=== PATIENT | female | born 1975 | race Caucasian/White ===

== ENCOUNTER 2024-11-28 05:52 | Emergency (ER) | payer MEDICAID, SELFPAY ==
[2024-11-28 05:55] VITALS: BP 186/99; PULSE 86; RESP 18; TEMP 36.7; O2SAT 96; BMI 29.2
--- NOTE | 2024-11-28 06:39 | PD.EDEAR ---
ED Ear RME/HPI General Chief complaint: Ear Stated complaint: LT EARACHE Time Seen by Provider: 11/28/24 06:13 Source: patient and EMS Arrival date/time: 11/28/24 05:52 This is a 49-year-old female history of alcoholism presents today with complaints of left ear pain and drainage. Patient also reports she has some mild nausea and bodyaches. Patient denies fever, chills no dyspnea Mode of arrival: EMS Related Data Home Medications ?Medication ?Instructions ?Recorded ?Confirmed buspirone 15 mg tablet 15 mg PO BID 09/20/20 09/20/20 furosemide 20 mg tablet 20 mg PO QDAY 09/20/20 09/20/20 gabapentin 300 mg capsule 300 mg PO TID 09/20/20 09/20/20 prazosin 2 mg capsule 4 mg PO QDAY 09/20/20 09/20/20 risperidone 1 mg tablet 1 mg PO BID 09/20/20 09/20/20 trazodone 50 mg tablet 50 mg PO HS 09/20/20 09/20/20 Previous Rx's ?Medication ?Instructions ?Recorded amoxicillin 875 mg-potassium 1 tab PO BID #14 tabs 11/28/24 clavulanate 125 mg tablet Allergies Allergy/AdvReac Type Severity Reaction Status Date / Time bee venom protein (honey bee) Allergy Severe swelling, Verified 11/28/24 05:59 difficulty breathing Review of Systems Review of Systems Systems Reviewed: All systems reviewed, normal except as documented Narrative Review of Systems: Gen: No fever, no chills, no weight loss EYES: No discharge, no visual changes, no pain HEENT: Left ear pain, no congestion, no sore throat PULM: No shortness of breath, no cough, no congestion CV: No chest pain, no dyspnea on exertion, no palpitations GI: No nausea, no vomiting, no diarrhea, no pain, no constipation : No frequency, no urgency, no dysuria Musc/skel: No joint pain, no back pain Skin: No rash Psyc: No hallucinations, no depression Heme/Lymph: No easy bleeding or bruising tendencies Neuro: No weakness, no headache ED Exam Narrative Physical exam: Chronically ill-appearing female General: Sittiing in Exam table in no acute distress, answering questions appropriately HENT: normocephalic, atraumatic, EOMI, PERRLA, moist mucous membranes. _Left TM whitish drainage Chest: chest wall is nontender Cardiac: regular rate and rhythm, normal S1 and S2, no murmurs, rubs, or gallops, capillary refill ?2 seconds Pulmonary: clear to auscultation bilaterally, no wheezing, crackles, or rhonchi Abdominal: active bowel sounds, soft, nontender, nondistended Neuro: A&OX3, CN II-XII intact, sensation grossly intact bilaterally in UE and LE. Skin: no rashes, no ecchymosis Ext: no lower extremity edema Course Quality Measures none Orders Category Date Time Status Bedside Influenza A&B Antigen Test NOW Care 11/28/24 06:34 Completed Ondansetron Odt [Zofran Odt] Med 11/28/24 06:34 Discontinued 4 mg PO X1 ONE Vital Signs Vital signs: Vital Signs Temperature 98.1 F 11/28/24 05:55 Pulse Rate 86 11/28/24 05:55 Respiratory Rate 18 11/28/24 05:55 Blood Pressure 186/99 H 11/28/24 05:55 Pulse Oximetry (%) 96 11/28/24 05:55 Oxygen Delivery Method Room Air 11/28/24 05:55 Ear Patient data External records reviewed:: [facility] previous records Clinical information provided by:: patient Social determinants that could affect healthcare access:: none Patient has the following chronic illnesses:: Hypertension, alcoholism okay How is presenting disease/condition affected by chronic disease/condition?: no chronic disease Evaluation data The following diagnostics were reviewed and interpreted by me:: lab results Lab and/or radiology exams considered but not ordered:: No Interpretation Summary: Influenza swab Medications / Prescriptions Medications or Prescriptions considered but not ordered:: No Medication administrations:: Medication Administration History Discontinued Medications Ondansetron HCl (Ondansetron Odt 4 Mg Tabrap) 4 mg PO X1 ONE; Protocol Stop: 11/28/24 06:35 Last Admin: 11/28/24 06:40 Dose: 4 mg Documented By: CVL All medications administered and effective Consultations Consultation(s) initiated? (list below): No Diagnosis Ear Differential Diagnosis: otitis externa, otitis media, foreign body in ear and ruptured TM Most likely diagnosis given after review of the tests above:: Otitis media Admission Indicated Admission indicated?: not indicated Admission Request Was there a request for admission?: No Disposition Plan Disposition Plan: Discharge Discharge Attestation Discharge Attestation: The patient and all family members were given an opportunity to ask questions and understood the discharge instructions. Discharge instructions specifically effects, indications for sooner follow up or return to the emergency department, and the expected course of current diagnosis. Patient condition: Stable Discharge Plan Plan Patient Disposition: HOME (Self Care) Patient condition on transfer: Stable Prescriptions/Referrals Prescriptions/Med Rec: New amoxicillin-pot clavulanate 875-125 mg tablet 1 tab PO BID Qty: 14 0RF No Action trazodone 50 mg tablet 50 mg PO HS gabapentin 300 mg capsule 300 mg PO TID furosemide 20 mg tablet 20 mg PO QDAY risperidone 1 mg tablet 1 mg PO BID Patient Comments: TAKE 1 TABLET BY MOUTH TWICE DAILY FOR 14 DAYS prazosin 2 mg capsule 4 mg PO QDAY buspirone 15 mg tablet 15 mg PO BID Problem List Clinical Impression: Otitis media Patient/Caregiver Discharge Instructions Discharge Activity: activity as tolerated Education Materials: ED Otitis Media Antibiotic ... Additional Instructions: Please attempt to filler picker your antibiotics. Return to the emergency department this any worsening symptoms any condition. Print Language: Citizen Of [place] Stand Alone Forms: Laura Award Info., Patient Portal Info Letter PA/LAURA Supervising Physician YENNY/LAURA Supervising Physician: Dr aBptiste
[2024-11-28] MEDS: ONDANSETRON ODT 4 MG TABRAP PO (06:40)
== END 2024-11-28 07:14 | disposition home or self-care (01) ==
PROVIDERS: Emergency Provider Emergency Medicine; PCP Family Medicine
DX: H66.92 Otitis media, unspecified, left ear (principal); I10 Essential (primary) hypertension; F10.20 Alcohol dependence, uncomplicated
CPT/HCPCS: 87400; 99283; Q0162

== ENCOUNTER 2025-01-01 19:58 | Emergency (ER) | payer MEDICAID, SELFPAY ==
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
[2025-01-01 20:15] VITALS: PULSE 152; RESP 20
[2025-01-01] MEDS: LORazepam 2 MG/ML VIAL IVP (20:16)
[2025-01-01] MEDS: HALOPERIDOL LACT INJ 5 MG/ML VIAL IM (20:17)
[2025-01-01] MEDS: DiphenhydrAMINE INJ 50 MG/ML VIAL IM (20:19)
[2025-01-01 20:32] LABS: Basophils # (Auto) 0.1 Thou/mm3 (0.0-0.2); Basophils % (Auto) 1 % (0-2.5); Eosinophils # (Auto) 0.3 Thou/mm3 (0.0-0.5); Eosinophils % (Auto) 3 % (0-10); Hematocrit 43.8 % (36.0-46.0); Hemoglobin 14.6 g/dL (12.0-16.0); Immature Granulocytes % (Auto) 0 % (0-0); Immature Granulocytes Auto 0.03 Thou/mm3 (0.00-0.00); Lymphocytes % (Auto) 36 % (10-50); Mean Corpuscular HGB Conc 33.3 g/dl (31.0-37.0); Mean Corpuscular Hemoglobin 32.4 pg (25.0-35.0); Mean Corpuscular Volume 97 fL (80-100); Monocytes # (Auto) 0.5 Thou/mm3 (0.0-0.8); Monocytes % (Auto) 4 % (0-12); Neutrophils % (Auto) 56 % (37-80); Nucleated Red Blood Cell % 0 /100 WBC (0); Platelet Count 304 Thou/mm3 (140-440); RDW Standard Deviation 48.1 fL (36.4-46.3); White Blood Count 10.9 Thou/mm3 (3.6-11.0)
[2025-01-01 20:41] VITALS: BP 124/77; PULSE 115; RESP 17; TEMP 37.2; O2SAT 93
[2025-01-01 20:52] LABS: HCG,Qualitative Serum Negative
[2025-01-01 21:00] VITALS: BP 125/88; PULSE 122; RESP 20; O2SAT 96
[2025-01-01 21:01] LABS: Acetaminophen < 2.0 mcg/mL (10.0-20.0); Alanine Aminotransferase 19 U/L (10-49); Albumin, Serum 4.8 gm/dL (3.5-5.0); Albumin/Globulin Ratio 1.5 (1.2-2.2); Alcohol, Blood Medical 300.6 mg/dL (0-10.0); Alkaline Phosphatase 102 U/L (46-116); Anion Gap 13 (7-16); Aspartate Amino Transferase 24 U/L (0-34); BUN/Creatinine Ratio 18 Ratio (12-20); Bilirubin,Total 0.3 mg/dL (0.3-1.2); Blood Urea Nitrogen 14 mg/dL (9-23); Carbon Dioxide 19.7 mMol/L (20.0-31.0); Chloride 115 mMol/L (98-107); Creatinine (Component) 0.8 mg/dL (0.6-1.3); Globulin 3.1 gm/dL (2.3-3.5); Glucose 106 mg/dL (74-106); Osmolality,Calculated 294 (275-295); Potassium 3.1 mMol/L (3.4-5.1); Sodium 148 mMol/L (136-145); Total Protein 7.9 gm/dL (5.7-8.2); eGFR > 60 See Note
[2025-01-01 21:18] LABS: Amphetamine/Methamp Scrn,U Negative (Negative); Barbiturate Screen,Urine Negative (Negative); Benzodiazepines Screen,Urine Negative (Negative); Benzoylecgonine Screen, Ur Negative (Negative); Fentanyl Screen,Urine Negative (Negative); Opiate Screen,Urine Negative (Negative); THC Screen,Urine Negative (Negative)
[2025-01-01 22:40] VITALS: BP 144/95; PULSE 102; RESP 18; TEMP 37.1; O2SAT 95
--- NOTE | 2025-01-01 23:25 | PC.NURSE ---
Pt sleepy, but aroused easily. Pt alert, oriented , instructed to relax, and remain in bed. Explained to pt with regards to plan of care. Pt informed that restraints will be removed if she remain cooperative. Pt understood and agreed with plan of care.
[2025-01-02] VITALS (10 sets, daily range): BP systolic 98–146; BP diastolic 63–98; PULSE 84–101; RESP 15–18; TEMP 36.3–36.6; O2SAT 95–99; BMI 27.3
--- NOTE | 2025-01-02 01:10 | PC.NURSE ---
pt remain calm, no distress noted.
--- NOTE | 2025-01-02 02:07 | PC.NURSE ---
Pt cont to sleep without diostress noted.
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
--- NOTE | 2025-01-02 05:59 | PD.EDADDENDU ---
Emergency Room Addendum Addendum Narrative: 0600: Care assumed from Dr. Nelson, the previous shift emergency physician. Past medical, surgical, social and family history reviewed. Vitals and home medications reviewed. I will assume the care of the patient at this time, pending crisis evaluation. Please refer to the emergency department record for history and examination from initial visit.? The patient was placed in ED observation care at 01/02/2025 at 0600 hours. The patient was placed in ED observation care pending behavioral health evaluation/ CRISIS evaluation. The patients past medical history, social history, and family history were reviewed. The plan of care will include serial examinations. While in ED observation the patient will have access to water, food, and personal hygiene. If the patient takes home medication(s), they will be continued in ED observation. Physical exam by me shows patient under no acute distress at this time. 1012: Cleared by CRISIS. Safe plan in place. Patient will be discharged. ED observation care ended at 01/02/2025 at 1012 hours. Diagnoses: -Alcohol intoxication
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
== END 2025-01-02 10:43 | disposition home or self-care (01) ==
PROVIDERS: Emergency Provider Emergency Medicine
DX: F10.129 Alcohol abuse with intoxication, unspecified (principal); F31.9 Bipolar disorder, unspecified; Y90.8 Blood alcohol level of 240 mg/100 ml or more; Z78.1 Physical restraint status
CPT/HCPCS: 36415; 80053; 80307; 80320; 80329; 84703; 85025; 90839; 96372; 96374; 99285; J1200; J1630; J2060; G0480